=== PATIENT | male | born 1980 | race African-American/Black ===

== ENCOUNTER 2025-01-23 22:42 | Emergency (ER) | payer OTHER, SELFPAY ==
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
[2025-01-23 23:04] VITALS: BP 190/109; PULSE 88; RESP 16; TEMP 36.5; O2SAT 100
[2025-01-24 02:29] VITALS: BP 127/99; PULSE 80; RESP 16; O2SAT 97
[2025-01-24] MEDS: CYCLOBENZAPRINE HCL 10 MG TABLET PO (03:10)
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
== END 2025-01-24 04:30 | disposition home or self-care (01) ==
PROVIDERS: Emergency Provider Emergency Medicine
DX: S16.1XXA Strain of muscle, fascia and tendon at neck level, initial encounter (principal); S29.012A Strain of muscle and tendon of back wall of thorax, initial encounter; S39.012A Strain of muscle, fascia and tendon of lower back, initial encounter; S80.01XA Contusion of right knee, initial encounter; V49.40XA Driver injured in collision with unspecified motor vehicles in traffic accident, initial encounter
CPT/HCPCS: 70450; 72125; 72128; 72131; 73564; 99284; A9270